=== PATIENT | male | born 1995 | race Caucasian/White ===

== ENCOUNTER 2018-01-03 19:46 | Inpatient (IN) | payer OTHER ==
[~2018-01-03] VITALS: Ht 182.9 cm; Wt 81.6 kg
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
[2018-01-03 19:48] VITALS: BP 139/87
[2018-01-03 20:18] LABS: ABSOLUTE NEUTROPHILS 9.9 thou/uL (1.4-8.2); BASOPHILS 0.4 % (0.0-2.0); HEMATOCRIT 47.9 % (42.0-52.0); HEMOGLOBIN 16.5 gm/dL (14.0-18.0); LYMPHOCYTES 7.1 % (24.0-44.0); MCH 29.5 pg (26.0-34.0); MCHC 34.4 g/dL (28.0-37.0); MCV 85.6 fL (80.0-100.0); MONOCYTES 6.9 % (1.0-8.0); PLATELET COUNT 278 thou/uL (150-400); POLYS 85.6 % (36.0-66.0); RDW 13.1 % (10.5-14.5); WBC 11.6 thou/uL (4.0-11.0)
[2018-01-03 20:26] LABS: ANION GAP 17 mmol/L (7-16); BUN 16 mg/dL (7-18); CALCIUM 9.8 mg/dL (8.5-10.1); CHLORIDE 103 mmol/L (98-107); CO2 22 mmol/L (21-32); CREATININE 1.4 mg/dL (0.7-1.3); GLUCOSE 114 mg/dL (74-106); POTASSIUM 4.1 mmol/L (3.5-5.1); SODIUM 142 mmol/L (136-145)
[2018-01-03 20:35] LABS: ALBUMIN 5.3 g/dL (3.4-5.0); SGOT 27 U/L (15-37); SGPT 29 U/L (30-65); TOTAL BILIRUBIN 1.2 mg/dL (<0.1-1.0); TOTAL PROTEIN 9.2 g/dL (6.4-8.2); TROPONIN-I < 0.04 ng/mL (<0.06)
[2018-01-03 20:45] LABS: SALICYLATE < 2.8 mg/dL (2.8-20.0)
[2018-01-03 22:18] LABS: URINE BILIRUBIN 1+ (Negative); URINE BLOOD NEGATIVE (Negative); URINE CLARITY CLOUDY; URINE COLOR YELLOW; URINE GLUCOSE-RANDOM* NEGATIVE (Negative); URINE KETONES 2+ (Negative); URINE LEUKOCYTES-REFLEX NEGATIVE (Negative); URINE NITRITE-REFLEX NEGATIVE (Negative); URINE PROTEIN (DIPSTICK) 1+ (Negative); URINE SPECIFIC GRAVITY >= 1.030 (1.005-1.035); URINE UROBILINOGEN 0.2 E.U./dl (0.2-1.0)
[2018-01-03 22:25] LABS: ICTOTEST (BILI CONFIRMATORY) Positive (Negative)
[2018-01-03 22:27] LABS: AMP/METHAMP Negative (Negative); BARBITURATES Negative (Negative); BENZODIAZEPINES Negative (Negative); COCAINE Negative (Negative); METHADONE Negative (Negative); OPIATES Negative (Negative); PCP Negative (Negative)
[2018-01-03 22:32] LABS: MUCUS 0-3 Light strn/LPF (None Seen); SQUAMOUS None Seen /LPF (0-3)
[2018-01-03 22:33] LABS: CASTS None Seen /LPF (None Seen)
[2018-01-03 22:34] LABS: AMORPHOUS URATES Many /LPF (None Seen); BACTERIA-REFLEX None Seen /HPF (None Seen); CRYSTALS None Seen /LPF (None Seen); URINE RBC None Seen /HPF (0-2); URINE WBC-REFLEX None Seen /HPF (0-5)
[2018-01-03 23:12] VITALS: BP 124/64
[2018-01-03 23:14] VITALS: BP 124/64
[2018-01-03 23:49] VITALS: BP 123/60
[2018-01-04 00:05] VITALS: BP 112/68
[2018-01-04 05:10] VITALS: BP 110/61
[2018-01-04 07:07] VITALS: BP 127/71
[2018-01-04 11:45] VITALS: BP 128/67
[2018-01-04 16:41] VITALS: BP 133/73
[2018-01-04 19:15] VITALS: BP 119/66
[2018-01-05 06:00] VITALS: BP 122/76
[2018-01-05 06:25] LABS: HEMATOCRIT 47.8 % (42.0-52.0); HEMOGLOBIN 15.8 gm/dL (14.0-18.0); MCH 28.6 pg (26.0-34.0); MCHC 32.9 g/dL (28.0-37.0); MCV 86.9 fL (80.0-100.0); RBC 5.5 mil/uL (4.50-6.00); RDW 13.2 % (10.5-14.5); WBC 12.8 thou/uL (4.0-11.0)
[2018-01-05 06:59] LABS: CALCIUM 9.3 mg/dL (8.5-10.1); POTASSIUM 4.5 mmol/L (3.5-5.1)
[2018-01-05 08:00] VITALS: BP 132/83
[2018-01-05 08:05] VITALS: BP 132/83
[2018-01-05] MEDS ORDERED: NAPROXEN250 MG PO (14:02)
[2018-01-05 14:04] VITALS: BP 132/83
[2018-01-05 14:05] VITALS: BP 132/83
== END 2018-01-05 15:08 | disposition home or self-care (01) | DRG 74 ==
LOC: ER 19:46 → EROBS 23:13 → 3W 23:13
PROVIDERS: Emergency Medicine; Nurse Practitioner Family
DX: S54.02XA Injury of ulnar nerve at forearm level, left arm, initial encounter (principal); S50.12XA Contusion of left forearm, initial encounter; F43.10 Post-traumatic stress disorder, unspecified; F17.210 Nicotine dependence, cigarettes, uncomplicated; F12.10 Cannabis abuse, uncomplicated; F41.9 Anxiety disorder, unspecified; F29 Unspecified psychosis not due to a substance or known physiological condition; R47.81 Slurred speech; Z88.8 Allergy status to other drugs, medicaments and biological substances; Y93.89 Activity, other specified; Y92.89 Other specified places as the place of occurrence of the external cause; Y99.8 Other external cause status; Z71.51 Drug abuse counseling and surveillance of drug abuser; Y08.89XA Assault by other specified means, initial encounter
CPT/HCPCS: 10779